=== PATIENT | female | born 1955 | race Asian ===

== ENCOUNTER → 2023-07-10 | Outpatient (CLI) | payer MEDICARE, OTHER | END | disposition home or self-care (01) | LOC: RADMN 11:34 | PROVIDERS: ATTEND Physical Medicine & Rehabilitation Spinal Cord Injury Medicine | DX: I67.82 Cerebral ischemia (principal); G93.89 Other specified disorders of brain; R74.01 Elevation of levels of liver transaminase levels; I69.951 Hemiplegia and hemiparesis following unspecified cerebrovascular disease affecting right dominant side; I70.0 Atherosclerosis of aorta; R05.9 Cough, unspecified | CPT/HCPCS: 70551; 71046 ==

== ENCOUNTER → 2023-08-09 | Outpatient (CLI) | payer MEDICARE, OTHER ==
[2023-08-09 16:02] LABS: BASOPHILS % (AUTO) 0.8 % (0.0-2.0); EOSINOPHILS % (AUTO) 2.3 % (1.0-6.0); HEMATOCRIT 43.1 % (36-46); HEMOGLOBIN 14.2 g/dL (12.0-16.0); LYMPHOCYTES # (AUTO) 2.9 K/uL (1.0-4.8); LYMPHOCYTES % (AUTO) 37.4 % (22.0-44.0); MEAN CORPUSCULAR HGB CONC 33.1 G/dL (31.0-37.0); MEAN CORPUSCULAR VOLUME 94 fL (80-100); MONOCYTES # (AUTO) 0.4 K/uL (0.1-1.0); MONOCYTES % (AUTO) 4.6 % (2.0-9.0); NEUTROPHILS # (AUTO) 4.2 K/uL (1.8-7.7); NEUTROPHILS % (AUTO) 54.9 % (40.0-70.0); PLATELET COUNT (AUTO) 151 K/uL (150-450); WHITE BLOOD COUNT (AUTO) 7.6 K/uL (4.5-11.0)
[2023-08-09 16:14] LABS: HEMOGLOBIN A1C 5.8 % (3.8-5.6)
[2023-08-09 16:15] LABS: ANION GAP 6 mmol/L (8-16); CALCIUM, TOTAL 9.7 mg/dL (8.8-10.5); CARBON DIOXIDE 30 mmol/L (22-29); CHLORIDE 104 mmol/L (98-107); CHOL/HDL RATIO 4.1 (3.9-5.7); CHOLESTEROL 259 mg/dL (131-200); CREATININE 0.65 mg/dL (0.60-1.30); GLOMERULAR FILTR. RATE CALC > 60 mL/min (>60); GLUCOSE,RANDOM 95 mg/dL (70-110); HDL CHOLESTEROL 63 mg/dL (40-60); LDL CHOL (CALC.) 182 mg/dL (0-130); POTASSIUM 4.1 mmol/L (3.5-5.1); SODIUM SERUM 140 mmol/L (136-145); TRIGLYCERIDES 68 mg/dL (15-150); UREA NITROGEN, BLOOD 21 mg/dL (7-18)
[2023-08-09 16:17] LABS: ERYTHROCYTE SEDIMENTATION RATE 37 MM/HR (0-30)
[2023-08-09 16:44] LABS: FREE T4 (FREE THYROXINE) 1.06 ng/dL (0.76-1.46); THYROID STIMULATING HORMONE 4.48 uIU/mL (0.36-3.74)
[2023-08-12 10:17] LABS: PROTEIN C AG-TOTAL 77 % (60-150)
[2023-08-16 00:06] LABS: ANTITHROMBIN ANTIGEN 86 % (72-124); ANTITHROMBIN, ENZYMATIC ACTVTY 112 % (75-135); DRVVT-LUPUS ANTICOAGULANT 28.5 sec (0.0-47.0); PROTEIN S, FREE 71 % (61-136); PT-LUPUS ANTICOAGULANT 10.8 sec (9.1-12.0); PTT 26.4 sec (22.9-30.2)
== END | disposition home or self-care (01) ==
LOC: LABMN 15:06
PROVIDERS: ATTEND Physical Medicine & Rehabilitation Spinal Cord Injury Medicine
DX: I49.9 Cardiac arrhythmia, unspecified (principal); I63.9 Cerebral infarction, unspecified; E03.9 Hypothyroidism, unspecified
CPT/HCPCS: 80048; 80061; 82607; 82746; 83036; 83735; 84439; 84443; 85025; 85300; 85301; 85302; 85305; 85306; 85610; 85613; 85651; 85730; 85732